=== PATIENT | female | born 1980 | race Caucasian/White ===

== ENCOUNTER 2017-02-25 11:50 | Emergency (ER) | payer OTHER ==
--- NOTE | 2017-02-25 12:20 | ED Physician Documentation ---
History of Present Illness - Stated complaint Stated Complaint: L ANKLE INJURY - Chief complaint Chief Complaint: Ext Problem - Additonal information Additional information: hx from pt 37 y/o f no preg was moving furniture into a car and rolled off the curb plantar flexing and inverting foot, pain to lateral low ankle and mostly proximal lateral foot, cannot walk Review of Systems : reports: Hysterectomy Musculoskeletal: reports: Pain with weight bearing PD PAST MEDICAL HISTORY - Past Medical History Past Medical History: Yes H[employer]: Other Psych: Post traumatic stress disorder - Past Surgical History Past Surgical History: Yes /H[employer]: Hysterectomy, Other - Present Medications Home Medications: Ambulatory Orders Medication Instructions Recorded Confirmed Dextroamphetamine/Amphetamine 1 tab PO BID 02/25/17 02/25/17 [Adderall 20 mg Tablet] Estrogen,Paulina/Me-Testosterone 1 tab PO DAILY 02/25/17 02/25/17 [Eemt Hs 0.625-1.25 mg Tablet] Sertraline [Zoloft] 200 mg PO DAILY 02/25/17 02/25/17 lamoTRIgine [LaMICtal] 200 tab PO DAILY 02/25/17 02/25/17 - Allergies Allergies/Adverse Reactions: Allergies Allergy/AdvReac Type Severity Reaction Status Date / Time trazodone Allergy Unknown Verified 02/25/17 11:55 - Social History Does the pt smoke?: No Smoking Status: Never smoker Does the pt drink ETOH?: Yes ETOH Use: Wine Does the pt have substance abuse?: No - Immunizations Immunizations are current?: Yes - POLST Patient has POLST: No PD ED PE NORMAL - Vitals Vital signs reviewed: Yes - Extremities Extremities: Other (ST TTP below lat mall, bony TTP proximal foot lateral to mdline with small swelling, limited ROm 2/2 pain, MSV intact) Results - Vitals Vitals: Vital Signs - 24 hr 02/25/17 02/25/17 11:53 13:47 Temperature 36.3 C L 36.8 C Heart Rate 75 77 Respiratory 18 18 Rate Blood Pressure 118/78 128/82 H O2 Saturation 99 98 Oxygen O2 Source Room air - Rads (name of study) ankle and foot Radiology: See rad report (neg) Departure - Departure Disposition: 01 Home, Self Care Clinical Impression: Foot sprain Qualifiers: Encounter type: initial encounter Laterality: left Qualified Code(s): S93.602A - Unspecified sprain of left foot, initial encounter Condition: Good Instructions: ED Sprain Foot Follow-Up: Latasha Hart PA-C [Primary Care Provider] - Comments: Thankfully the xrays are fine Recommend wearing an ELEONORA wrap to decrease the swelling and using the crutches to reduce weight bearing stress while the foot heals Motrin and tylenol as needed for the pain If still painful in two weeks please see your PMD for a recheck and consideration of further imaging Forms: Activity restrictions
--- NOTE | 2017-02-25 12:50 | XRAY Preliminary Report ---
Exam: XR Ankle 3 View LT IMPRESSION: Normal ankle radiography. [facility] SITE ID: [id number]
--- NOTE | 2017-02-25 12:51 | XRAY Preliminary Report ---
Exam: XR Foot 3 View LT IMPRESSION: Normal foot radiography. [facility] SITE ID: [id number]
--- NOTE | 2017-02-25 12:52 | XRAY Report ---
EXAM: LEFT ANKLE RADIOGRAPHY EXAM DATE: 02/25/2017 12:29 PM. CLINICAL HISTORY: Rolled ankle and foot cant walk. COMPARISON: None. TECHNIQUE: 3 views. FINDINGS: Bones: Normal. No fractures or bone lesions. Joints: Normal. No effusion. No subluxations. The ankle mortise is normally aligned. Soft Tissues: Normal. No soft tissue swelling. IMPRESSION: Normal ankle radiography. [facility] Referring Provider Line: [phone] SITE ID: [id number]
--- NOTE | 2017-02-25 12:53 | XRAY Report ---
EXAM: LEFT FOOT RADIOGRAPHY EXAM DATE: 02/25/2017 12:29 PM. CLINICAL HISTORY: Rolled ankle and foot cant walk. COMPARISON: None. TECHNIQUE: 3 views. FINDINGS: Bones: Normal. No fractures or bone lesions. Joints: Normal. No subluxations. Soft Tissues: Normal. No soft tissue swelling. IMPRESSION: Normal foot radiography. [facility] Referring Provider Line: [phone] SITE ID: [id number]
[2017-02-25 13:48] VITALS: BP 128/82
[2017-02-25] MEDS ORDERED: ACETAMINOPHEN 325 MG TABLET PO STA (13:55)
[2017-02-25] MEDS ORDERED: IBUPROFEN 400 MG TABLET PO STA (13:55)
[2017-02-25] MEDS ORDERED: ACETAMINOPHEN 325 MG TABLET PO ONE (13:59)
[2017-02-25] MEDS ORDERED: IBUPROFEN 400 MG TABLET PO ONE (13:59)
== END 2017-02-25 14:28 | disposition home or self-care (01) ==
LOC: ED 11:50
DX: S93.602A Unspecified sprain of left foot, initial encounter (principal); X50.0XXA Overexertion from strenuous movement or load, initial encounter; Y93.E6 Activity, residential relocation
CPT/HCPCS: 73610; 73630; 99282; 99283; A9270